=== PATIENT | female | born 1990 | race Caucasian/White ===

== ENCOUNTER 2019-09-10 18:49 | Emergency (ER) | payer OTHER ==
[2019-09-10] MEDS ORDERED: ACETAMINOPHEN 500 MG TABLET PO STA (21:04)
--- NOTE | 2019-09-10 21:07 | ED Physician Documentation ---
History of Present Illness - Stated complaint Stated Complaint: FEVER, JOHN - Chief complaint Chief Complaint: Fever - History obtained from History obtained from: Patient (28-year-old female presents today with a chief complaint of fever that started yesterday, today she developed chills, runny nose and a headache T-max is one 101.1. 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 she denies any re spiratory distress, wheezing, SOB, nausea, vomiting, diarrhea.) Review of Systems Constitutional: reports: Fever, Chills, Fatigue Eyes: reports: Reviewed and negative Ears: reports: Ear pain Nose: reports: Rhinorrhea / runny nose Throat: reports: Reviewed and negative Respiratory: reports: Reviewed and negative GI: reports: Reviewed and negative : reports: Reviewed and negative Skin: reports: Reviewed and negative PD PAST MEDICAL HISTORY - Past Medical History Past Medical History: No - Past Surgical History Past Surgical History: No - Present Medications Home Medications: Ambulatory Orders Medication Instructions Recorded Confirmed Oseltamivir [Tamiflu] 75 mg PO BID #10 capsule 09/10/19 - Allergies Allergies/Adverse Reactions: Allergies Allergy/AdvReac Type Severity Reaction Status Date / Time No Known Drug Allergies Allergy Verified 09/10/19 19:00 - Social History Does the pt smoke?: No Smoking Status: Never smoker Does the pt drink ETOH?: No Does the pt have substance abuse?: No - Immunizations Immunizations are current?: No PD ED PE NORMAL - General General: Alert and oriented X 3, No acute distress, Well developed/nourished - HEENT HEENT: Atraumatic, PERRL, EOMI, Ears normal, Moist mucous membranes, Pharynx benign - Neck Neck: No adenopathy - Cardiac Cardiac: RRR, No murmur - Respiratory Respiratory: No respiratory distress, Clear bilaterally - Abdomen Abdomen: Soft, Non tender PD ED PE EXPANDED - HEENT HEENT: Rhinorrhea Results - Vitals Vitals: Vital Signs - 24 hr 09/10/19 18:58 Temperature 37.6 C H Heart Rate 103 H Respiratory 18 Rate Blood Pressure 118/82 H O2 Saturation 97 Oxygen O2 Source Room air - Labs Labs: Laboratory Tests 09/10/19 21:15 Influenza A (Rapid) POSITIVE H Influenza B (Rapid) Negative PD MEDICAL DECISION MAKING - ED course Complexity details: reviewed results, re-evaluated patient, d/w patient Departure - Departure Clinical Impression: Influenza Condition: Good Instructions: ED Flu Prescriptions: Oseltamivir [Tamiflu] 75 mg PO BID #10 capsule Comments: Here diagnosed with influenza A today. See handouts for information on this. You have been prescribed Tamiflu, which is safe to take while breast-feeding. Take this twice a day for the next 5 days. He can take Tylenol or ibuprofen for headache and fevers. no work the rest of this week. Plenty of rest, plenty of clear fluids. As long as her children do not show signs of flu, fevers chills headaches, they are okay to go to daycare. Forms: Activity restrictions
[2019-09-10] MEDS ORDERED: IBUPROFEN 600 MG TABLET PO STA (21:47)
[2019-09-10 21:57] VITALS: BP 110/69
== END 2019-09-10 22:20 | disposition home or self-care (01) ==
LOC: ED 18:49
DX: J10.1 Influenza due to other identified influenza virus with other respiratory manifestations (principal)
CPT/HCPCS: 87275; 87276; 99283; A9270

== ENCOUNTER 2020-01-25 15:18 | Outpatient (CLI) | payer OTHER | END 2020-01-25 15:19 | disposition home or self-care (01) | LOC: DI 15:18 | PROVIDERS: ATTEND Family Medicine | DX: R10.9 Unspecified abdominal pain (principal); Z53.9 Procedure and treatment not carried out, unspecified reason ==

== ENCOUNTER 2020-03-15 18:24 | Emergency (ER) | payer OTHER ==
--- NOTE | 2020-03-15 20:01 | ED Physician Documentation ---
History of Present Illness - Stated complaint Stated Complaint: LOWER BACK PX - Chief complaint Chief Complaint: Abd Pain - Additonal information Additional information: 29 year old female presents to the emergency department for evaluation of acute left low back pain. She reports that it began spontaneously while she was sitting on a couch with her children this evening. She took Aleve but it did not help. She is worried that she might have a yeast infection though she denies dysuria urgency or vaginal discharge. However she reports that her lower abdomen has been swollen since she had a uterine rupture after a in May 2019 (treated at an outside hospital). Patient also reports that she does have a history of chronic low back pain that she. Attributes to scoliosis for which she was rodded earlier in her youth. Denies the possibility of . She has Nexplanon in her right upper arm Patient denies fevers, saddle anesthesia. She has had no vomiting or weight loss. No history of injection drug use or cancer Review of Systems Constitutional: reports: Reviewed and negative Ears: reports: Reviewed and negative Nose: reports: Reviewed and negative Throat: reports: Reviewed and negative Cardiac: reports: Reviewed and negative Respiratory: reports: Reviewed and negative GI: reports: Abdominal Pain, Abdominal Swelling. denies: Nausea, Vomiting, Constipation, Diarrhea, Hematemesis : denies: Dysuria, Frequency, Hesitancy, Incontinent, Hematuria, Discharge Skin: reports: Reviewed and negative Musculoskeletal: reports: Back pain. denies: Extremity pain, Joint pain, Extremity swelling, Joint swelling, Pain with weight bearing Neurologic: reports: Reviewed and negative Psychiatric: reports: Reviewed and negative PD PAST MEDICAL HISTORY - Past Surgical History Past Surgical History: No - Present Medications Home Medications: Ambulatory Orders Medication Instructions Recorded Confirmed Oseltamivir [Tamiflu] 75 mg PO BID #10 capsule 09/10/19 - Allergies Allergies/Adverse Reactions: Allergies Allergy/AdvReac Type Severity Reaction Status Date / Time No Known Drug Allergies Allergy Verified 03/15/20 18:41 - Social History Does the pt smoke?: No Smoking Status: Never smoker Does the pt drink ETOH?: No Does the pt have substance abuse?: No - Immunizations Immunizations are current?: No PD ED PE NORMAL - General General: Alert and oriented X 3, No acute distress - HEENT HEENT: PERRL, EOMI - Neck Neck: Supple, no meningeal sign, No adenopathy - Cardiac Cardiac: RRR, No murmur, No gallop - Respiratory Respiratory: No respiratory distress, Clear bilaterally - Abdomen Abdomen: Normal bowel sounds, Soft. No: Non tender (Mild lower suprapubic tenderness to palpation without guarding or rebound.) - Back Back: No CVA TTP, No spinal TTP, Other (Left lower SI point tenderness. No midline spinous process tenderness. Negative straight leg exam bilaterally. Able to walk on heels and toes. 2+ patellar reflexes bilaterally. Motor strength 5 of 5 bilateral lower extremities) - Derm Derm: Normal color, Warm and dry, No rash - Extremities Extremities: No deformity, No tenderness to palpate - Neuro Neuro: Alert and oriented X 3, independent marketing consultant 2-12 intact, No motor deficit Eye Opening: Spontaneous Motor: Obeys Commands Verbal: Oriented GCS Score: 15 - Psych Psych: Normal mood, Normal affect Results - Vitals Vitals: Vital Signs - 24 hr 03/15/20 03/15/20 03/15/20 18:35 19:43 20:50 Temperature 36.3 C L Heart Rate 75 72 65 Respiratory 14 17 18 Rate Blood Pressure 122/63 132/93 H 104/64 O2 Saturation 99 100 100 Oxygen O2 Source Room air - Labs Labs: Laboratory Tests 03/15/20 03/15/20 03/15/20 20:00 20:00 20:15 WBC RBC Hgb Hct MCV MCH MCHC RDW Plt Count MPV Neut # (Auto) Lymph # (Auto) [place] # (Auto) Eos # (Auto) Baso # (Auto) Absolute Nucleated RBC Nucleated RBC % Sodium Potassium Chloride Carbon Dioxide Anion Gap BUN Creatinine Estimated GFR (MDRD) Glucose Calcium Total Bilirubin AST ALT Alkaline Phosphatase Total Protein Albumin Globulin Albumin/Globulin Ratio Lipase HCG, Quant < 0.60 Urine Color YELLOW Urine Clarity CLEAR Urine pH 6.0 Ur Specific [place] >=1.030 H >=1.030 H Urine Protein NEGATIVE Urine Glucose (UA) NEGATIVE Urine Ketones NEGATIVE Urine Occult Blood TRACE-INTA Urine Nitrite NEGATIVE Urine Bilirubin NEGATIVE Urine Urobilinogen 1 (NORMAL) Ur Leukocyte Esterase NEGATIVE Ur Microscopic Review NOT INDICATED Urine Culture Comments NOT INDICATED Urine HCG, Qual NEGATIVE 03/15/20 03/15/20 20:15 20:15 WBC 5.7 RBC 4.20 Hgb 13.1 Hct 38.5 MCV 91.7 MCH 31.2 H MCHC 34.0 RDW 12.0 Plt Count 170 MPV 9.1 Neut # (Auto) 3.3 Lymph # (Auto) 1.8 [place] # (Auto) 0.4 Eos # (Auto) 0.1 Baso # (Auto) 0.0 Absolute Nucleated RBC 0.00 Nucleated RBC % 0.0 Sodium 141 Potassium 3.7 Chloride 108 Carbon Dioxide 24 Anion Gap 9.0 BUN 29 H Creatinine 0.6 Estimated GFR (MDRD) 118 Glucose 117 H Calcium 9.3 Total Bilirubin 1.3 H AST 16 ALT 16 Alkaline Phosphatase 51 Total Protein 7.2 Albumin 4.5 Globulin 2.7 Albumin/Globulin Ratio 1.7 Lipase 18 L HCG, Quant Urine Color Urine Clarity Urine pH Ur Specific [place] Urine Protein Urine Glucose (UA) Urine Ketones Urine Occult Blood Urine Nitrite Urine Bilirubin Urine Urobilinogen Ur Leukocyte Esterase Ur Microscopic Review Urine Culture Comments Urine HCG, Qual PD MEDICAL DECISION MAKING - ED course Complexity details: reviewed old records, reviewed results, re-evaluated patient, considered differential, d/w patient ED course: 29-year-old female presents to the emergency department with a chief complaint of acute left low back pain but she is worried that she may have a yeast infection. She denies vaginal bleeding vaginal discharge or any urinary symptoms however. she declined a pelvic exam. Her labs are essentially unremarkable. No leukocytosis or significant electrolyte abnormality. On exam I was unable to elicit any abdominal pain. She was given 30 mg of Toradol IV and reported that the low back pain was markedly better. She has no red flags for back pain. Will recommend that she continue to take the Aleve at home with food. Schedule close follow-up with primary care provider. Departure - Departure Disposition: , Self Care Clinical Impression: Left low back pain Qualifiers: Chronicity: acute Sciatica presence: without sciatica Qualified Code(s): M54.5 - Low back pain Condition: Stable Record reviewed to determine appropriate education?: Yes Instructions: ED Back Care Tips Follow-Up: ANASTACIO CATHERINE ARNP [Primary Care Provider] - Comments: Your labs today are essentially normal. Your urine shows no signs of infection. I recommend that you drink lots of fluids at home you may be slightly dehydrated. Please take the Aleve to help with your low back pain. If you develop fevers, pain radiates down your leg, you have numbness or tingling between your legs or you are unable to control your bowel or bladder movements please return to the ER
[2020-03-15 20:07] LABS: BILIRUBIN,URINE NEGATIVE (NEGATIVE); CLARITY,URINE CLEAR (CLEAR); GLUCOSE, URINE (UA) NEGATIVE (NEGATIVE); KETONES,URINE (UA) NEGATIVE (NEGATIVE); LEUKOCYTE ESTERASE, URINE NEGATIVE (NEGATIVE); NITRITE,URINE NEGATIVE (NEGATIVE); OCCULT BLOOD,URINE TRACE-INTA (NEGATIVE); PROTEIN,URINE NEGATIVE (NEGATIVE); UROBILINOGEN,URINE 1 (NORMAL) E.U./dL (NORMAL)
[2020-03-15 20:21] LABS: BASOPHILS % (AUTO) 0.5 %; EOSINOPHILS # (AUTO) 0.1 10^3/uL (0.0-0.7); EOSINOPHILS % (AUTO) 1.9 %; HGB - HEMOGLOBIN 13.1 g/dL (12.0-16.0); LYMPHOCYTES # (AUTO) 1.8 10^3/uL (1.5-3.5); LYMPHOCYTES % (AUTO) 31.3 %; MEAN CORPUSCULAR HEMOGLOBIN 31.2 pg (27.0-31.0); MEAN CORPUSCULAR VOLUME 91.7 fL (81.0-99.0); MEAN PLATELET VOLUME 9.1 fL (7.9-10.8); MONOCYTES # (AUTO) 0.4 10^3/uL (0.0-1.0); MONOCYTES % (AUTO) 7.1 %; NEUTROPHILS # (AUTO) 3.3 10^3/uL (1.5-6.6); PLT - PLATELET COUNT 170 10^3/uL (130-450); WHITE BLOOD COUNT 5.7 x10^3/uL (4.8-10.8)
[2020-03-15 20:35] LABS: HCG UR QUAL NEGATIVE
[2020-03-15 20:40] LABS: ALBUMIN 4.5 g/dL (3.2-5.5); ALBUMIN/GLOBULIN RATIO 1.7 (1.0-2.2); BILIRUBIN,TOTAL 1.3 mg/dL (0.2-1.0); CALCIUM 9.3 mg/dL (8.5-10.3); CREATININE 0.6 mg/dL (0.4-1.0); TOTAL PROTEIN 7.2 g/dL (6.7-8.2)
[2020-03-15] MEDS: KETOROLAC 30 MG/ML VIAL IM STA (20:51)
[2020-03-15 21:09] VITALS: BP 108/66
== END 2020-03-15 21:10 | disposition home or self-care (01) ==
LOC: ED 18:24
DX: M54.5 Low back pain (principal); R10.9 Unspecified abdominal pain
CPT/HCPCS: 36415; 80053; 81001; 81003; 81025; 83690; 84702; 85025; 87086; 96372; 99283; 99284